=== PATIENT | male | born 1990 | race Caucasian/White ===

== ENCOUNTER 2017-04-12 13:30 | Emergency (ER) | payer MEDICAID ==
[~2017-04-12] VITALS: Ht 185.4 cm; Wt 76.2 kg
[2017-04-12 13:35] VITALS: BP 94/57
[2017-04-12] MEDS ORDERED: IBUPROFEN 800 MG TAB PO ONE (15:00)
== END 2017-04-12 14:59 | disposition home or self-care (01) ==
LOC: ER 13:30
DX: S63.256A Unspecified dislocation of right little finger, initial encounter (principal); F17.210 Nicotine dependence, cigarettes, uncomplicated; X58.XXXA Exposure to other specified factors, initial encounter; Y93.89 Activity, other specified; Y92.89 Other specified places as the place of occurrence of the external cause; Y99.8 Other external cause status
CPT/HCPCS: 26770; 73130; 73140